=== PATIENT | male | born 1965 | race African-American/Black ===

== ENCOUNTER 2018-09-12 13:16 | Emergency (ER) | payer BC ==
[2018-09-12 13:41] VITALS: BP 150/78; PULSE 108; RESP 18; TEMP 98.4
[2018-09-12] MEDS ORDERED: SODIUM CHLORIDE 0.9% 1,000 ML IV STA (13:46)
--- NOTE | 2018-09-12 14:26 | ED ---
General Adult HPI - General Chief complaint: Urogenital Stated complaint: Blood in urine Time Seen by Provider: 09/12/18 13:46 Source: patient, RN notes reviewed Mode of arrival: ambulatory Limitations: no limitations - History of Present Illness Initial comments: This a 52-year-old male presents emergency Department with chief complaint of hematuria. Patient states he's noticed that he's had urinary frequency with mild dysuria and noted hematuria over the last couple days. Patient denies any fevers or chills. Patient has no history kidney stones. Patient states that he started taking some Azo [id number] because of his symptoms had no relief. Patient does have mild right flank pain no abdominal discomfort including nausea vomiting diarrhea constipation. Patient reports no fevers or chills. - Related Data Previous Rx's Medication Instructions Recorded Sulfamethox-Tmp 800-160Mg [Bactrim 1 each PO Q12HR #14 tab 09/12/18 Ds] Allergies Allergy/AdvReac Type Severity Reaction Status Date / Time Penicillins Allergy Rash/Hives Verified 09/12/18 13:42 Review of Systems ROS Statement: Those systems with pertinent positive or pertinent negative responses have been documented in the HPI. ROS Other: All systems not noted in ROS Statement are negative. Past Medical History Additional Past Medical History / Comment(s): obesity History of Any Multi-Drug Resistant Organisms: None Reported Additional Past Surgical History / Comment(s): lap band, varicose veins Past Psychological History: No Psychological Hx Reported Smoking Status: Former smoker Past Alcohol Use History: Occasional Past Drug Use History: None Reported General Exam Limitations: no limitations General appearance: alert, in no apparent distress Head exam: Present: atraumatic, normocephalic, normal inspection Eye exam: Present: normal appearance, PERRL, EOMI. Absent: scleral icterus, conjunctival injection, periorbital swelling ENT exam: Present: normal exam, normal oropharynx, mucous membranes moist Neck exam: Present: normal inspection, full ROM. Absent: tenderness, meningismus, lymphadenopathy Respiratory exam: Present: normal lung sounds bilaterally. Absent: respiratory distress, wheezes, rales, rhonchi, stridor Cardiovascular Exam: Present: regular rate, normal rhythm, normal heart sounds. Absent: systolic murmur, diastolic murmur, rubs, gallop, clicks GI/Abdominal exam: Present: soft, normal bowel sounds. Absent: distended, tenderness, guarding, rebound, rigid Back exam: Absent: CVA tenderness (R), CVA tenderness (L) Neurological exam: Present: alert, oriented X3, CN II-XII intact Skin exam: Present: warm, dry, intact, normal color. Absent: rash Course Vital Signs 09/12/18 13:39 Temperature 98.4 F Pulse Rate 108 H Respiratory 18 Rate Blood Pressure 150/78 O2 Sat by Pulse 99 Oximetry Medical Decision Making - Medical Decision Making 52-year-old male present emergency from [facility]. Patient had urinalysis, labs, CT. There is no evidence of a stone or mass. There is concern for possible underlying urinary tract infection. Patient was started on anti biotics. He'll follow-up with urology for further evaluation and return for worsening symptoms. - Lab Data Result diagrams: 09/12/18 14:30 09/12/18 14:30 Lab Results 09/12/18 09/12/18 09/12/18 Range/Units 14:30 14:30 14:30 WBC 9.7 (3.8-10.6) k/uL RBC 5.68 (4.30-5.90) m/uL Hgb 14.7 (13.0-17.5) gm/dL Hct 45.3 (39.0-53.0) % MCV 79.8 L (80.0-100.0) fL MCH 25.8 (25.0-35.0) pg MCHC 32.3 (31.0-37.0) g/dL RDW 14.0 (11.5-15.5) % Plt Count 303 (150-450) k/uL Neutrophils % 63 % Lymphocytes % 18 % Monocytes % 12 % Eosinophils % 2 % Basophils % 1 % Neutrophils # 6.1 (1.3-7.7) k/uL Lymphocytes # 1.8 (1.0-4.8) k/uL Monocytes # 1.2 H (0-1.0) k/uL Eosinophils # 0.2 (0-0.7) k/uL Basophils # 0.1 (0-0.2) k/uL Sodium 140 (137-145) mmol/L Potassium 3.8 (3.5-5.1) mmol/L Chloride 101 (98-107) mmol/L Carbon Dioxide 25 (22-30) mmol/L Anion Gap 14 mmol/L BUN 14 (9-20) mg/dL Creatinine 0.88 (0.66-1.25) mg/dL Est GFR (CKD-EPI)AfAm >90 (>60 ml/min/1.73 sqM) Est GFR (CKD-EPI)NonAf >90 (>60 ml/min/1.73 sqM) Glucose 101 H (74-99) mg/dL Calcium 9.2 (8.4-10.2) mg/dL Total Bilirubin 0.9 (0.2-1.3) mg/dL AST 21 (17-59) U/L ALT 23 (21-72) U/L Alkaline Phosphatase 68 (38-126) U/L Total Protein 7.6 (6.3-8.2) g/dL Albumin 4.1 (3.5-5.0) g/dL Urine Color Dark Brown Urine Appearance Turbid (Clear) Urine pH 6.0 (5.0-8.0) Ur Specific [place] 1.021 (1.001-1.035) Urine Protein 2+ H (Negative) Urine Glucose (UA) Negative (Negative) Urine Ketones Trace H (Negative) Urine Blood Moderate H (Negative) Urine Nitrite Negative (Negative) Urine Bilirubin 1+ H (Negative) Urine Urobilinogen 4.0 (<2.0) mg/dL Ur Leukocyte Esterase Large H (Negative) Urine RBC 30 H (0-5) /hpf Urine WBC Clumps Many H (None) /hpf Urine Mucus Many H (None) /hpf Disposition Clinical Impression: Hematuria, UTI (urinary tract infection) Disposition: HOME SELF-CARE Condition: Stable Instructions (If sedation given, give patient instructions): Urinary Tract Infection in Men (ED) Additional Instructions: Please return to the Emergency Department if symptoms worsen or any other concerns. Prescriptions: Sulfamethox-Tmp 800-160Mg [Bactrim Ds] 1 each PO Q12HR #14 tab Is patient prescribed a controlled substance at d/c from ED?: No Referrals: aSrah Marte MD [Primary Care Provider] - 1-2 days Haroon Duarte MD [STAFF PHYSICIAN] - 1-2 days Time of Disposition: 15:28
[2018-09-12 14:37] LABS: Basophils # (A) 0.1 k/uL (0-0.2); Basophils % (A) 1 %; Eosinophils # (A) 0.2 k/uL (0-0.7); Eosinophils % (A) 2 %; HCT 45.3 % (39.0-53.0); HGB 14.7 gm/dL (13.0-17.5); Lymphocytes # (A) 1.8 k/uL (1.0-4.8); Lymphocytes % (A) 18 %; MCH 25.8 pg (25.0-35.0); MCHC 32.3 g/dL (31.0-37.0); MCV 79.8 fL (80.0-100.0); Mean Platelet Volume 6.6; Monocytes # (A) 1.2 k/uL (0-1.0); Monocytes % (A) 12 %; Neutrophils # (A) 6.1 k/uL (1.3-7.7); Neutrophils % (A) 63 %; Platelet Count 303 k/uL (150-450); RBC 5.68 m/uL (4.30-5.90); WBC 9.7 k/uL (3.8-10.6)
[2018-09-12 14:41] LABS: Appearance,Urine Turbid (Clear); Bilirubin,Urine 1+ (Negative); Blood,Urine Moderate (Negative); Color,Urine Dark Brown; Glucose,Urine (UA) Negative (Negative); Ketones,Urine Trace (Negative); Leukocyte Esterase,Urine Large (Negative); Mucus,Urine Many /hpf; Nitrite,Urine Negative (Negative); Protein,Urine 2+ (Negative); RBC,Urine 30 /hpf (0-5); Specific Gravity,Urine 1.021 (1.001-1.035)
[2018-09-12 14:46] LABS: ALT 23 U/L (21-72); AST 21 U/L (17-59); African American GFR (CKD) >90 (>60 ml/min/1.73 sqM); Albumin 4.1 g/dL (3.5-5.0); Alkaline Phosphatase 68 U/L (38-126); Anion Gap 14 mmol/L; Blood Urea Nitrogen 14 mg/dL (9-20); Calcium 9.2 mg/dL (8.4-10.2); Carbon Dioxide 25 mmol/L (22-30); Chloride 101 mmol/L (98-107); Glucose 101 mg/dL (74-99); Potassium 3.8 mmol/L (3.5-5.1); Sodium 140 mmol/L (137-145); Total Bilirubin 0.9 mg/dL (0.2-1.3); Total Protein 7.6 g/dL (6.3-8.2)
--- NOTE | 2018-09-12 14:57 | CT ---
EXAMINATION TYPE: CT abdomen pelvis wo con DATE OF EXAM: 09/12/2018 COMPARISON: HISTORY: Hematuria. CT DLP: 2332 mGycm Examination of the solid and hollow viscera is limited given the lack of contrast. FINDINGS: LUNG BASES: No evidence for nodule. No evidence for infiltrate. LIVER/GB: The gallbladder is unremarkable. No space-occupying hepatic lesion. PANCREAS: No pancreatic mass identified. No inflammatory process seen. SPLEEN: No evidence for splenomegaly. No intrasplenic lesions seen. ADRENALS: No adrenal nodules identified. No evidence for thickening. KIDNEYS: No evidence for renal mass. No nephrolithiasis. No hydronephrosis. BOWEL: Appendix has a normal appearance. No evidence of bowel obstruction. No inflammatory process. Lymph nodes: No evidence for adenopathy greater than 1 cm. Abdominal aorta: Atheromatous changes seen. No evidence for aneurysm. Genital organs: No significant abnormality. Other: No significant abnormality. IMPRESSION: 1. No significant abnormality to account for the patient's symptoms.
== END 2018-09-12 16:05 | disposition home or self-care (01) ==
LOC: EC 13:16
DX: N39.0 Urinary tract infection, site not specified (principal); E66.9 Obesity, unspecified; Z68.44 Body mass index [BMI] 60.0-69.9, adult; Z87.891 Personal history of nicotine dependence; Z98.84 Bariatric surgery status; Z88.0 Allergy status to penicillin
CPT/HCPCS: 36415; 74176; 80053; 81001; 85025; 87077; 87086; 87186; 96360; 99284

== ENCOUNTER 2020-12-26 13:37 | Inpatient (IN) | payer BC ==
[2020-12-26] MEDS ORDERED: FAMOTIDINE 20 MG/2 ML VIAL IV STA (14:06)
[2020-12-26] MEDS ORDERED: diphenhydrAMINE 50 MG/ML 1 ML VIAL IVP STA (14:06)
[2020-12-26] MEDS ORDERED: methylPREDNISolone SOD SUCCI 125 MG/2 ML VIAL IV STA (14:06)
[2020-12-26] MEDS ORDERED: TRANEXAMIC ACID 1,000 MG/10 ML VIAL IV ONE (14:14)
[2020-12-26] MEDS ORDERED: TRANEXAMIC ACID 1,000 MG in SODIUM CHLORIDE 0.9% 100 ML IVPB ONE (14:30)
--- NOTE | 2020-12-26 14:34 | ED ---
Allergic Reaction HPI - General Chief complaint: Allergic Reaction Stated complaint: Allergic Reaction Time Seen by Provider: 12/26/20 13:45 Source: patient Mode of arrival: ambulatory Limitations: no limitations - History of Present Illness Initial Comments: 55-year-old male past medical history of hypertension, diabetes, high blood pressure who presents emergency room with reported tongue swelling. States that he woke up about an hour ago noted that he had fullness to the right side of his tongue. He was unsure if it was due to some trail mix that he ate earlier today before he took his nap. Admits allergy to penicillin but has not been on any new medications. Patient does take lisinopril and has been on it for approximately one year. No history of similar in the past. Denies the sensation that his airway is closing off. No chest pain or shortness of breath. He went to the pharmacy and bought some Benadryl however did not take any as the pharmacist recommended that he come into the emergency department instead. No lip swelling. No fevers or chills. No other alleviating, precipitating or modifying factors - Related Data Home Medications Medication Instructions Recorded Confirmed Diclofenac Sodium [Voltaren] 75 mg PO BID 12/26/20 12/26/20 Furosemide [Lasix] 20 mg PO DAILY 12/26/20 12/26/20 amLODIPine [Norvasc] 10 mg PO DAILY 12/26/20 12/26/20 lisinopriL 20 mg PO DAILY 12/26/20 12/26/20 metFORMIN HCL [Glucophage] 850 mg PO W/BRKFST 12/26/20 12/26/20 Allergies Allergy/AdvReac Type Severity Reaction Status Date / Time Penicillins Allergy Rash/Hives Verified 12/26/20 16:48 Review of Systems ROS Statement: Those systems with pertinent positive or pertinent negative responses have been documented in the HPI. ROS Other: All systems not noted in ROS Statement are negative. Past Medical History Past Medical History: Diabetes Mellitus, Hypertension Additional Past Medical History / Comment(s): obesity History of Any Multi-Drug Resistant Organisms: None Reported Additional Past Surgical History / Comment(s): lap band, varicose veins Past Psychological History: No Psychological Hx Reported Smoking Status: Never smoker Past Alcohol Use History: Occasional Past Drug Use History: None Reported - Past Family History Mother Family Medical History: Congestive Heart Failure (CHF), CVA/TIA, Hypertension Additional Family Medical History / Comment(s): "Heart Problems" General Exam Limitations: no limitations Course Vital Signs 12/26/20 12/26/20 12/26/20 13:45 14:30 15:32 Temperature 97.4 F L Pulse Rate 112 H 85 Respiratory 20 19 21 Rate Blood Pressure 155/74 Blood Pressure [Left Arm] O2 Sat by Pulse 100 Oximetry 12/26/20 12/26/20 12/26/20 15:40 15:50 16:00 Temperature Pulse Rate 98 103 H 101 H Respiratory 20 12 17 Rate Blood Pressure 149/106 205/121 174/79 Blood Pressure [Left Arm] O2 Sat by Pulse 100 100 Oximetry 12/26/20 12/26/20 12/26/20 16:10 16:18 16:30 Temperature Pulse Rate 99 96 96 Respiratory 18 18 29 H Rate Blood Pressure 123/68 113/57 121/56 Blood Pressure [Left Arm] O2 Sat by Pulse 100 100 97 Oximetry 12/26/20 12/26/20 12/26/20 16:31 16:34 17:00 Temperature 98.1 F Pulse Rate 97 89 Respiratory 15 14 11 L Rate Blood Pressure 121/56 117/65 Blood Pressure 110/61 [Left Arm] O2 Sat by Pulse 97 97 96 Oximetry 12/26/20 17:12 Temperature Pulse Rate 88 Respiratory 15 Rate Blood Pressure 107/53 Blood Pressure [Left Arm] O2 Sat by Pulse 95 Oximetry - Reevaluation(s) Reevaluation #1: 12/26/20 15:51 Re-evaluation demonstrates worsening swelling. The swelling now involves the floor of the mouth. Patient has significant voice changes. Cannot tolerated his secretions. Anesthesia is called for assistance with intubation. Medical Decision Making - Medical Decision Making Upon arrival patient is placed into trauma bay 3. A thorough history and physical exam was performed. Upon arrival patient does have some swelling to the right side of his tongue. IV is established. Patient was given 125 of Solu-Medrol, 20 mg of Pepcid, 50 mg of Benadryl and 1 g of TXA over 10 minutes. He is reevaluated and does have worsening swelling to the right side of his tongue which no involves the floor of his mouth. He is moved into trauma 1. He is given a dose of epinephrine. I did call and speak with anesthesiology who presents to the emergency department. After epinephrine is administered the patient does have difficulty tolerating his secretions and begins vomiting. Because of this decision is made to intubate the patient. Anesthesiology does perform the procedure. Patient is placed on the vent. Admitted to Dr. bermudez. Dr. Park does present to the emergency room and evaluate the patient himself. He is then taken to the ICU in stable condition - Lab Data Result diagrams: 12/26/20 14:49 12/26/20 14:49 Lab Results 12/26/20 12/26/20 Range/Units 14:49 14:49 WBC 8.7 (3.8-10.6) k/uL RBC 5.08 (4.30-5.90) m/uL Hgb 13.8 (13.0-17.5) gm/dL Hct 44.3 (39.0-53.0) % MCV 87.1 (80.0-100.0) fL MCH 27.1 (25.0-35.0) pg MCHC 31.1 (31.0-37.0) g/dL RDW 13.6 (11.5-15.5) % Plt Count 270 (150-450) k/uL MPV 7.7 Neutrophils % 64 % Lymphocytes % 24 % Monocytes % 6 % Eosinophils % 4 % Basophils % 1 % Neutrophils # 5.6 (1.3-7.7) k/uL Lymphocytes # 2.1 (1.0-4.8) k/uL Monocytes # 0.5 (0-1.0) k/uL Eosinophils # 0.3 (0-0.7) k/uL Basophils # 0.1 (0-0.2) k/uL Sodium 136 L (137-145) mmol/L Potassium 4.6 (3.5-5.1) mmol/L Chloride 104 (98-107) mmol/L Carbon Dioxide 23 (22-30) mmol/L Anion Gap 9 mmol/L BUN 13 (9-20) mg/dL Creatinine 0.58 L (0.66-1.25) mg/dL Est GFR (CKD-EPI)AfAm >90 (>60 ml/min/1.73 sqM) Est GFR (CKD-EPI)NonAf >90 (>60 ml/min/1.73 sqM) Glucose 90 (74-99) mg/dL Calcium 8.8 (8.4-10.2) mg/dL Total Bilirubin 0.4 (0.2-1.3) mg/dL AST 20 (17-59) U/L ALT 16 (4-49) U/L Alkaline Phosphatase 59 (38-126) U/L Total Protein 6.7 (6.3-8.2) g/dL Albumin 3.5 (3.5-5.0) g/dL Disposition Clinical Impression: Ventilator dependence, Angioedema, LORENZO inhibitor-aggravated angioedema Disposition: ADMITTED IP TO THIS [facility] Condition: Serious Is patient prescribed a controlled substance at d/c from ED?: No Decision to Admit Reason: Admit from EC Decision Date: 12/26/20 Decision Time: 15:57
[2020-12-26 15:03] LABS: ALT 16 U/L (4-49); AST 20 U/L (17-59); African American GFR (CKD) >90 (>60 ml/min/1.73 sqM); Albumin 3.5 g/dL (3.5-5.0); Alkaline Phosphatase 59 U/L (38-126); Anion Gap 9 mmol/L; Blood Urea Nitrogen 13 mg/dL (9-20); Calcium 8.8 mg/dL (8.4-10.2); Carbon Dioxide 23 mmol/L (22-30); Chloride 104 mmol/L (98-107); Glucose 90 mg/dL (74-99); Non-African American GFR(CKD) >90 (>60 ml/min/1.73 sqM); Potassium 4.6 mmol/L (3.5-5.1); Sodium 136 mmol/L (137-145); Total Bilirubin 0.4 mg/dL (0.2-1.3); Total Protein 6.7 g/dL (6.3-8.2)
[2020-12-26 15:06] LABS: Basophils # (A) 0.1 k/uL (0-0.2); Basophils % (A) 1 %; Eosinophils # (A) 0.3 k/uL (0-0.7); Eosinophils % (A) 4 %; HCT 44.3 % (39.0-53.0); HGB 13.8 gm/dL (13.0-17.5); Lymphocytes # (A) 2.1 k/uL (1.0-4.8); Lymphocytes % (A) 24 %; MCH 27.1 pg (25.0-35.0); MCHC 31.1 g/dL (31.0-37.0); MCV 87.1 fL (80.0-100.0); Mean Platelet Volume 7.7; Monocytes # (A) 0.5 k/uL (0-1.0); Monocytes % (A) 6 %; Neutrophils # (A) 5.6 k/uL (1.3-7.7); Neutrophils % (A) 64 %; Platelet Count 270 k/uL (150-450); RBC 5.08 m/uL (4.30-5.90); RDW 13.6 % (11.5-15.5); WBC 8.7 k/uL (3.8-10.6)
[2020-12-26] MEDS ORDERED: ONDANSETRON 4 MG/2 ML VIAL IVP STA (15:34)
[2020-12-26] MEDS: PROPOFOL 10 MG/ML 20 ML VIAL IV ONE ×2 (15:37→15:41)
[2020-12-26] MEDS ORDERED: SUCCINYLCHOLINE CHLORIDE VIAL 200 MG/10 ML VIAL IV STA (15:40)
[2020-12-26] MEDS ORDERED: NALOXONE 0.4 MG/ML 1 ML VIAL IV PRN (15:57)
[2020-12-26] MEDS ORDERED: MIDAZOLAM 1 MG/ML 5 ML VIAL IV STA (16:03)
--- NOTE | 2020-12-26 16:18 | XR ---
EXAMINATION TYPE: XR chest 1V portable DATE OF EXAM: 12/26/2020 HISTORY: Shortness of breath. COMPARISON: None. TECHNIQUE: Single view of the chest is submitted. FINDINGS: Endotracheal tube is well-positioned and is approximately 3.1 cm from the otilio. The NG tube coils w ithin the mid esophagus and back towards the oral cavity. The heart is enlarged. There is pulmonary venous congestion and linear atelectasis right midlung zone . Hilar and mediastinal structures are within normal limits. Degenerative changes are seen of the dorsal spine. IMPRESSION: 1. Appropriate ET tube placement. NG tube should be repositioned.
[2020-12-26] MEDS ORDERED: HYDROmorphone 0.5 MG/0.5 ML SYRINGE IVP PRN (16:20)
--- NOTE | 2020-12-26 16:22 | P.CNPUL ---
History of Present Illness Consult date: 12/26/20 Chief complaint: angioedema History of present illness: 55-year-old morbidly obese male patient, currently intubated because of a massive angioedema causing significant amount of swelling in his tongue and airway compromise. The patient was taken ABHIJEET inhibitor Zestril for blood pressure. He came into the emergency department because of some tongue swelling and ultimately got to a point where he was unable to swallow and he was drooling and he was having respiratory difficulties and anesthesia intubated the patient and placed on a mechanical ventilator. At this point in time, the lips and tongues are still swollen. The patient was given epinephrine without any response prior to intubation. He was also given Solu-Medrol 125 mg IV 1, Benadryl 50 mg IV 1 and he was also given TXA and the bleeding. No Hypotension. At This Point in Time, He Is Intubated on a Mechanical Ventilator Assist Control Mode at the Rate of 14 Tidal Volume of 450 FiO2 100% with a PEEP of 5. Chest X-Ray Post Intubation , showed no acute abnormalities. ET tube is in a good location. There are some atelectatic changes in the right upper lobe and there is fluid in the right lung fissure. There is cardiomegaly in the lung volumes are small. ET tube is seen approximately 1 cm above the otilio. Currently is on probable running at 80 mg/kg per minute. He is also on IV fluids of 0.9 mL an hour. He is diabetic and his blood sugar is running at nor mal range. Normal renal function. Normal electrolytes. Normal white count. COVID-19 testing has not been completed yet. Review of Systems ROS unobtainable: due to endotracheal tube Past Medical History Past Medical History: Diabetes Mellitus, Hypertension Additional Past Medical History / Comment(s): obesity History of Any Multi-Drug Resistant Organisms: None Reported Additional Past Surgical History / Comment(s): lap band, varicose veins Past Psychological History: No Psychological Hx Reported Smoking Status: Never smoker Past Alcohol Use History: Occasional Past Drug Use History: None Reported Medications and Allergies Home Medications Medication Instructions Recorded Confirmed Type Sulfamethox-Tmp 800-160Mg [Bactrim 1 each PO Q12HR #14 tab 09/12/18 Rx Ds] Allergies Allergy/AdvReac Type Severity Reaction Status Date / Time Penicillins Allergy Rash/Hives Verified 12/26/20 13:48 Physical Exam Vitals: Vital Signs Temp Pulse Resp BP Pulse Ox 12/26/20 13:45 97.4 F L 112 H 20 155/74 100 Intake and Output 12/26/20 12/26/20 12/26/20 06:59 14:59 22:59 Intake Total 1.506 Balance 1.506 Intake: Intake, IV Titration 1.506 Amount propofoL 1,000 mg In 1.506 Empty Bag 1 bag @ Titrate IV .Q0M [facility] Rx#: [id number] Other: Weight 188.241 kg patient is calm and comfortable likely distress, sedated, is morbidly obese with a BMI of 65 Orogastric and orotracheal tube are both in place and the patient currently intubated on a mechanical ventilator Head exam was generally normal. There was no scleral icterus or corneal arcus. Mucous membranes were moist. Neck is short and supple and symmetric and the patient has an enlarged tongue with swelling in the lip is also swollen especially in the lower lip. Orogastric and orotracheal tube are both in place. Lungs were clear to auscultation and percussion, and with normal diaphragmatic excursion. No wheezes or rales were noted. Cardiac exam revealed the PMI to be normally situated and sized. The rhythm was regular and no extrasystoles were noted during several minutes of auscultation. The first and second heart sounds were normal and physiologic splitting of the second heart sound was noted. There were no murmurs, rubs, clicks, or gallops. Abdominal exam revealed normal bowel sounds. The abdomen was soft, non-tender, and without masses, organomegaly, or appreciable enlargement of the abdominal aorta. Examination of the extremities revealed easily palpable radial, femoral and pedal pulses. There was no cyanosis, clubbing or edema. Examination of the skin revealed no evidence of significant rashes, suspicious appearing nevi or other concerning lesions. Neurologic the patient is sedated and the patient is calm and comfortable. Results - Laboratory Findings CBC and BMP: 12/26/20 14:49 12/26/20 14:49 Abnormal lab findings: Abnormal Labs 12/26/20 14:49 Sodium 136 L Creatinine 0.58 L - Diagnostic Findings Chest x-ray: image reviewed Assessment and Plan Plan: 1 acute angioedema with upper airway compromise requiring intubation mechanical ventilation. This is an Abhijeet induced angioedema as the patient has been taken ABHIJEET inhibitor for almost a year. No other obvious cause for his angioedema. 2 acute hypoxic respiratory failure secondary to above. The patient had significant tongue swelling in addition to left swelling and difficulty in swallowing and breathing and he is morbidly obese with obvious features of obstructive sleep apnea with some baseline airway compromise. As such, the patient had to be intubated and placed on a mechanical ventilator. 3 morbid obesity with a BMI of 65 4 diabetes mellitus 5 hypertension 6 previous history of lap band Plan Transfer the patient intensive care unit Drop the FiO2 down to 50% Obtain a blood gas Post intubation chest x-ray was noted Continue propofol Use Dilaudid 0.5 mg every 3-6 hours on history basis and avoid benzodiazepines IV Decadron 60 mg every 6 hours and IV Pepcid 20 mg every 12 Lovenox 40 mg subcu for DVT prophylaxis Keep the patient nothing by mouth for now. No need for Benadryl responding time High likelihood for obstructive sleep apnea and this is to be checked at a later stage Keep the patient nothing by mouth for now Discontinue Abhijeet inhibitors Sliding scale insulin coverage Check COVID-19 status We'll continue to follow. Condition is critical. Case was discussed with his mother the bedside. Time with Patient: Greater than 30
[2020-12-26] MEDS ORDERED: INSULIN ASPART (NovoLOG) 100 UNIT/ML VIAL SQ SCH (16:30)
[2020-12-26] MEDS: DEXAMETHASONE SOD PHOSPHATE 10 MG/ML 1 ML VIAL IV SCH ×2 (17:03→22:09)
[2020-12-26 17:05] LABS: ABG Base Excess 1.7 mmol/L; ABG HCO3 28 mmol/L (21-25); ABG Oxygen Saturation 94.3 % (94-97); ABG PCO2 52 mmHg (35-45); ABG PH 7.33 (7.35-7.45); ABG PO2 75 mmHg (83-108); ABG TCO2 29 mmol/L (19-24); Allen Test Performed? Yes
--- NOTE | 2020-12-26 19:20 | P.HPIM ---
History of Present Illness H&P Date: 12/26/20 Chief Complaint: Tongue swelling This is a 55-year-old patient, was chronic stable medical conditions include hypertension, diabetes, presents to the ER with his right side of the tongue swelling. He had woken up an hour prior to coming here. Eating some cranial mix before he had taken a nap. He has been on lisinopril for about a year. Denied any shortness of breath otherwise. When the swelling progressed. He had gone to the pharmacy to get some Benadryl but he was told to come in here instead. He started choking in the ER and patient had to be intubated. Jasvir colmenares the ICU. Mother at the bedside. Patient on the ventilator with setting of 50/5 and propofol drip. Patient did receive IV Pepcid, IV Benadryl, IV Solu- Medrol. Review of systems: Patient intubated Past medical history to include: Diabetes, hypertension, LAP-BAND Social history: Lives with his mother for last 6 months. 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 Does not smoke, possible some alcohol. Prior to that not known. with 2 children. Family history: Reviewed, noncontributory to presentation Physical examination: VITAL SIGNS: Afebrile, 88, 15, 107/53, 95% on the ventilator GENERAL: BMI 65, laying in bed intubated. EYES: Pupils equal. Conjunctiva normal. HEENT: External appearance of nose and ears normal, oral cavity endotracheal tube. NECK: JVD unable to assess; masses not palpable. HEART: First and second heart sounds are normal; some edema. LUNGS: Respiratory rate normal; decreased breath sound. ABDOMEN: Soft, nontender, liver spleen not palpable, no masses palpable Rudd catheter. PSYCH: Sedatedl. NEUROLOGICAL: [Cranial nerves grossly intact; no facial asymmetry, plantars acute vocal. LYMPHATICS: No lymph nodes palpable in the axilla and neck INVESTIGATIONS, reviewed in the clinical context: WBC 8.7 hemoglobin 13.8 platelets 270 sodium 136 potassium 4.6 BUN 13 creatinine 0.58 Coronavirus [PCR]: Not detected Telemetry strip personally reviewed by me: Sinus rhythm Chest x-ray film personally reviewed by me-ET tube. Some venous congestion. A telectasis. Assessment and plan: -This patient had a bag of cranial mix and then went to sleep. Presented with swelling of the right swelling of tongue that progressed to acute respiratory failure with patient choking and had to be intubated to protect the airways. It is unclear as to the reason for his ALLERGIC reaction. Severe Steroids, Pepcid, Benadryl -Morbid obesity BMI 65 -Essential hypertension Follow blood pressure closely -Diabetes mellitus type 2, on oral hypoglycemic Expect Accu-Cheks to go because patient was steroids. Follow Accu-Cheks closely. Patient in the ICU. Intubated. Propofol drip. Risk Compliance Manager consult. Follow Accu-Cheks. DVT prophylaxis. Steroids. Pepcid. Benadryl. Given the complexity and severity of patient's condition expect the patient to be in the hospital at least for 2 overnights Past Medical History Past Medical History: Diabetes Mellitus, Hypertension Additional Past Medical History / Comment(s): obesity History of Any Multi-Drug Resistant Organisms: None Reported Additional Past Surgical History / Comment(s): lap band, varicose veins Past Psychological History: No Psychological Hx Reported Smoking Status: Never smoker Past Alcohol Use History: Occasional Past Drug Use History: None Reported Medications and Allergies Home Medications Medication Instructions Recorded Confirmed Type Diclofenac Sodium [Voltaren] 75 mg PO BID 12/26/20 12/26/20 History Furosemide [Lasix] 20 mg PO DAILY 12/26/20 12/26/20 History amLODIPine [Norvasc] 10 mg PO DAILY 12/26/20 12/26/20 History lisinopriL 20 mg PO DAILY 12/26/20 12/26/20 History metFORMIN HCL [Glucophage] 850 mg PO W/BRKFST 12/26/20 12/26/20 History Allergies Allergy/AdvReac Type Severity Reaction Status Date / Time Penicillins Allergy Rash/Hives Verified 12/26/20 16:48 Physical Exam Vitals: Vital Signs Temp Pulse Resp BP Pulse Ox 12/26/20 17:12 88 15 107/53 95 12/26/20 16:31 97 15 121/56 97 12/26/20 16:18 96 18 113/57 100 12/26/20 16:10 99 18 123/68 100 12/26/20 16:00 101 H 17 174/79 12/26/20 15:50 103 H 12 205/121 100 12/26/20 15:40 98 20 149/106 100 12/26/20 15:32 85 21 12/26/20 14:30 19 12/26/20 13:45 97.4 F L 112 H 20 155/74 100 Intake and Output 12/26/20 12/26/20 12/26/20 06:59 14:59 22:59 Intake Total 12.048 Balance 12.048 Intake: Intake, IV Titration 12.048 Amount propofoL 1,000 mg In 12.048 Empty Bag 1 bag @ Titrate IV .Q0M [facility] Rx#: [id number] Other: Weight 188.241 kg Results CBC & Chem 7: 12/26/20 14:49 12/26/20 14:49 Labs: Abnormal Lab Results - Last 24 Hours (Table) 12/26/20 12/26/20 Range/Units 14:49 17:03 ABG pH 7.33 L (7.35-7.45) ABG pCO2 52 H (35-45) mmHg ABG pO2 75 L (83-108) mmHg ABG HCO3 28 H (21-25) mmol/L ABG Total CO2 29 H (19-24) mmol/L Sodium 136 L (137-145) mmol/L Creatinine 0.58 L (0.66-1.25) mg/dL
[2020-12-26] MEDS: CHLORHEXIDINE GLUCONATE 15 ML CUP MUCOUS MEM SCH (20:15)
[2020-12-26] MEDS: diphenhydrAMINE 50 MG/ML 1 ML VIAL IVP SCH ×2 (20:15→23:58)
[2020-12-26] MEDS: FAMOTIDINE 20 MG/2 ML VIAL IV SCH (20:16)
[2020-12-26] MEDS: SODIUM CHLORIDE 0.9% 1,000 ML IV SCH (22:10)
[2020-12-26 23:52] LABS: Glucose,Whole Blood 128 mg/dL (75-99)
[2020-12-26] MEDS: INSULIN ASPART (NovoLOG) 100 UNIT/ML VIAL SQ SCH (23:53)
[2020-12-27 05:07] LABS: Basophils % (A) 0 %; Eosinophils # (A) 0.1 k/uL (0-0.7); Eosinophils % (A) 1 %; HCT 42.9 % (39.0-53.0); HGB 13.5 gm/dL (13.0-17.5); Lymphocytes % (A) 10 %; MCH 27.7 pg (25.0-35.0); MCHC 31.5 g/dL (31.0-37.0); Mean Platelet Volume 7.8; Monocytes # (A) 0.1 k/uL (0-1.0); Monocytes % (A) 1 %; Neutrophils # (A) 8.6 k/uL (1.3-7.7); Neutrophils % (A) 88 %; Platelet Count 280 k/uL (150-450); RBC 4.88 m/uL (4.30-5.90); RDW 13.6 % (11.5-15.5); WBC 9.9 k/uL (3.8-10.6)
[2020-12-27 05:13] LABS: ABG Base Excess 2.4 mmol/L; ABG HCO3 27 mmol/L (21-25); ABG Oxygen Saturation 98.5 % (94-97); ABG PCO2 45 mmHg (35-45); ABG PO2 101 mmHg (83-108); ABG TCO2 29 mmol/L (19-24); Allen Test Performed? Yes
[2020-12-27 05:28] LABS: ALT 17 U/L (4-49); AST 21 U/L (17-59); African American GFR (CKD) >90 (>60 ml/min/1.73 sqM); Albumin 3.5 g/dL (3.5-5.0); Alkaline Phosphatase 61 U/L (38-126); Anion Gap 7 mmol/L; Blood Urea Nitrogen 10 mg/dL (9-20); Carbon Dioxide 22 mmol/L (22-30); Chloride 106 mmol/L (98-107); Glucose 138 mg/dL (74-99); Non-African American GFR(CKD) >90 (>60 ml/min/1.73 sqM); Potassium 4.4 mmol/L (3.5-5.1); Sodium 135 mmol/L (137-145); Total Bilirubin 0.3 mg/dL (0.2-1.3); Total Protein 6.8 g/dL (6.3-8.2)
[2020-12-27] MEDS: DEXAMETHASONE SOD PHOSPHATE 10 MG/ML 1 ML VIAL IV SCH ×4 (05:35→21:50)
[2020-12-27] MEDS: diphenhydrAMINE 50 MG/ML 1 ML VIAL IVP SCH ×4 (05:36→23:21)
[2020-12-27 06:15] LABS: Glucose,Whole Blood 121 mg/dL (75-99)
[2020-12-27] MEDS: INSULIN ASPART (NovoLOG) 100 UNIT/ML VIAL SQ SCH ×4 (06:24→23:19)
--- NOTE | 2020-12-27 07:57 | XR ---
EXAMINATION TYPE: XR chest 1V portable DATE OF EXAM: 12/27/2020 Comparison: 12/26/2020 Clinical History: 55-year-old male shortness of breath Findings: ET tube tip just above the level of the medial clavicular heads. Suspect kyphotic positioning. Heart appears enlarged. Interstitial opacities persist though there is been improvement in aeration in the upper lobes. Elevated hemidiaphragms limit assessment for effusions. NG tube removed in the interval. Impression: 1. Limited, kyphotic exam. Similar cardiomegaly and continued interstitial changes, correlate for per ivascular congestion. 2. The patchy opacities in the upper lobes have improved.
--- NOTE | 2020-12-27 08:07 | P.PN ---
Subjective Progress Note Date: 12/27/20 55-year-old morbidly obese male patient, currently intubated because of a massive angioedema causing significant amount of swelling in his tongue and airway compromise. The patient was taken ABHIJEET inhibitor Zestril for blood pressure. He came into the emergency department because of some tongue swelling and ultimately got to a point where he was unable to swallow and he was drooling and he was having respiratory difficulties and anesthesia intubated the patient and placed on a mechanical ventilator. At this point in time, the lips and tongues are still swollen. The patient was given epinephrine without any response prior to intubation. He was also given Solu-Medrol 125 mg IV 1, Benadryl 50 mg IV 1 and he was also given TXA and the bleeding. No Hypotension. At This Point in Time, He Is Intubated on a Mechanical Ventilator Assist Control Mode at the Rate of 14 Tidal Volume of 450 FiO2 100% with a PEEP of 5. Chest X-Ray Post Intubation , showed no acute abnormalities. ET tube is in a good location. There are some atelectatic changes in the right upper lobe and there is fluid in the right lung fissure. There is cardiomegaly in the lung volumes are small. ET tube is seen approximately 1 cm above the otilio. Currently is on probable running at 80 mg/kg per minute. He is also on IV fluids of 0.9 mL an hour. He is diabetic and his blood sugar is running at normal range. Normal renal function. Normal electrolytes. Normal white count. COVID-19 testing has not been completed yet. On today's evaluation of the 2020, the patient is being seen for a follow- up. He is a large or obese gentleman with a body mass index of 67.9 with developed angioedema. He had significant airway compromise knowing that he may have an underlying obstructive sleep apnea in addition. His tongue is still swollen is protruded on today's evaluation. He remains on Decadron. He remains on a mechanical ventilator. His assist-control mode with a tidal volume of 450 and FiO2 has been drop down to 50% with a PEEP of 5 and a respiratory rate of 14. His morning blood gases showed a pH of 7.4 with a pCO2 of 45 and pO2 of 11. Chest x-ray from today shows adequate positioning of the orotracheal tube. No evidence of any pneumothorax. No evidence of any consolidation or airspace disease. There is some atelectatic changes in lung bases bilaterally. No significant orotracheal secretions. No fever. No chills. OG every was not inserted. In fact this was an unsuccessful insertion. Note that the patient has a lap band in place. Meanwhile, he is hemodynamically stable. He still requiring sedation and the sedation is in the form of propofol running at 60 mics respiratory gram per minute. He is afebrile. Hemodynamically stable. He is on Decadron at a dose of 60 mg IV every 6 hours. White cell count of 9.9. Rest of the electrodes are normal. COVID-19 testing was negative. LFTs are normal. Creatinine is normal. No other significant events overnight. His peak airway pressure is 17 Objective - Vital Signs Vital signs: Vital Signs Temp 98.3 F 12/27/20 04:00 Pulse 72 12/27/20 07:00 Resp 18 12/27/20 07:00 BP 127/70 12/27/20 07:00 Pulse Ox 97 12/27/20 07:00 Intake & Output 12/26/20 12/27/20 12/27/20 18:59 06:59 18:59 Intake Total 993.756 6151.923 100 Output Total 1505 125 Balance 100.000 440.923 -25 Weight 188.241 kg 196.7 kg Intake: IV 1100 100 Sodium Chloride 0.9% 1, 1100 100 000 ml @ 100 mls/hr IV . Q10H [facility] Rx#:[id number] Intake, IV Titration 100.000 845.923 Amount propofoL 1,000 mg In 100.000 845.923 Empty Bag 1 bag @ Titrate IV .Q0M [facility] Rx#: [id number] Output: Urine 1505 125 Other: Voiding Method Indwelling Catheter - Exam patient is calm and comfortable likely distress, sedated, is morbidly obese with a BMI of 65 Orogastric and orotracheal tube are both in place and the patient currently intubated on a mechanical ventilator Head exam was generally normal. There was no scleral icterus or corneal arcus. Mucous membranes were moist. Neck is short and supple and symmetric and the patient has an enlarged tongue with swelling in the lip is also swollen especially in the lower lip. Orogastric and orotracheal tube are both in place. Lungs were clear to auscultation and percussion, and with normal diaphragmatic excursion. No wheezes or rales were noted. Cardiac exam revealed the PMI to be normally situated and sized. The rhythm was regular and no extrasystoles were noted during several minutes of auscultation. The first and second heart sounds were normal and physiologic splitting of the second heart sound was noted. There were no murmurs, rubs, clicks, or gallops. Abdominal exam revealed normal bowel sounds. The abdomen was soft, non-tender, and without masses, organomegaly, or appreciable enlargement of the abdominal aorta. Examination of the extremities revealed easily palpable radial, femoral and pedal pulses. There was no cyanosis, clubbing or edema. Examination of the skin revealed no evidence of significant rashes, suspicious appearing nevi or other concerning lesions. Neurologic the patient is sedated and the patient is calm and comfortable. - Labs CBC & Chem 7: 12/27/20 04:38 12/27/20 04:38 Labs: Abnormal Lab Results - Last 24 Hours (Table) 12/26/20 12/26/20 12/26/20 Range/Units 14:49 17:03 23:50 Neutrophils # (1.3-7.7) k/uL ABG pH 7.33 L (7.35-7.45) ABG pCO2 52 H (35-45) mmHg ABG pO2 75 L (83-108) mmHg ABG HCO3 28 H (21-25) mmol/L ABG Total CO2 29 H (19-24) mmol/L ABG O2 Saturation (94-97) % Sodium 136 L (137-145) mmol/L Creatinine 0.58 L (0.66-1.25) mg/dL Glucose (74-99) mg/dL POC Glucose (mg/dL) 128 H (75-99) mg/dL 12/27/20 12/27/20 12/27/20 Range/Units 04:38 04:38 05:06 Neutrophils # 8.6 H (1.3-7.7) k/uL ABG pH (7.35-7.45) ABG pCO2 (35-45) mmHg ABG pO2 (83-108) mmHg ABG HCO3 27 H (21-25) mmol/L ABG Total CO2 29 H (19-24) mmol/L ABG O2 Saturation 98.5 H (94-97) % Sodium 135 L (137-145) mmol/L Creatinine 0.49 L (0.66-1.25) mg/dL Glucose 138 H (74-99) mg/dL POC Glucose (mg/dL) (75-99) mg/dL 12/27/20 Range/Units 06:13 Neutrophils # (1.3-7.7) k/uL ABG pH (7.35-7.45) ABG pCO2 (35-45) mmHg ABG pO2 (83-108) mmHg ABG HCO3 (21-25) mmol/L ABG Total CO2 (19-24) mmol/L ABG O2 Saturation (94-97) % Sodium (137-145) mmol/L Creatinine (0.66-1.25) mg/dL Glucose (74-99) mg/dL POC Glucose (mg/dL) 121 H (75-99) mg/dL Assessment and Plan Plan: 1 acute angioedema with upper airway compromise requiring intubation mechanical ventilation. This is an Abhijeet induced angioedema as the patient has been taken ABHIJEET inhibitor for almost a year. No other obvious cause for his angioedema. 2 acute hypoxic respiratory failure secondary to above. The patient had significant tongue swelling in addition to left swelling and difficulty in swallowing and breathing and he is morbidly obese with obvious features of obstructive sleep apnea with some baseline airway compromise. As such, the patient had to be intubated and placed on a mechanical ventilator. 3 morbid obesity with a BMI of 65 4 diabetes mellitus 5 hypertension 6 previous history of lap band Plan On today's evaluation, the swelling in his upper airway seems to have improved compared to yesterday. I will give the patient at least 24 hours on steroids hoping that the swelling within his upper airway with improved. His tongue is still swollen the protruded although less compared to yesterday. He remains on a mechanical ventilator. Continue ventilator support for now. No vent setting changes on today's evaluation. Blood gases was noted. Chest x-ray was noted. Continue IV Decadron. Continue Lovenox for DVT prophylaxis. Avoid benzodiazepi yo and use Dilaudid on an as-needed basis if excess sedation is needed. Continue Pepcid. No Abhijeet inhibitors. Blood sugars under adequate control as the patient is covered with a sliding scale insulin coverage. COVID-19 testing was negative. We'll keep on the mechanical ventilator for today. Will consider extubation within the next 24 hours. We'll continue to follow. Critical care evaluation CC time >30 min Time with Patient: Greater than 30
[2020-12-27] MEDS: CHLORHEXIDINE GLUCONATE 15 ML CUP MUCOUS MEM SCH ×2 (09:26→21:49)
[2020-12-27] MEDS: FAMOTIDINE 20 MG/2 ML VIAL IV SCH ×2 (09:26→21:50)
[2020-12-27] MEDS: SODIUM CHLORIDE 0.9% 1,000 ML IV SCH ×2 (09:26→17:39)
[2020-12-27 11:29] LABS: Glucose,Whole Blood 116 mg/dL (75-99)
--- NOTE | 2020-12-27 13:30 | P.PN ---
Progress Note - Text Progress Note Date: 12/27/20 Chief Complaint: Tongue swelling This is a 55-year-old patient, was chronic stable medical conditions include hypertension, diabetes, presents to the ER with his right side of the tongue swelling. He had woken up an hour prior to coming here. Eating some cranial mix before he had taken a nap. He has been on lisinopril for about a year. Denied any shortness of breath otherwise. When the swelling progressed. He had gone to the pharmacy to get some Benadryl but he was told to come in here instead. He started choking in the ER and patient had to be intubated. Currently the ICU. Mother at the bedside. Patient on the ventilator with setting of 50/5 and propofol drip. Patient did receive IV Pepcid, IV Benadryl, IV Solu-Medrol. 12/27/2020: ICU. Intubated. FiO2 15 a PEEP of 5. Sinus rhythm. Had some bleeding from the mouth. On IV propofol. NG tube could not be placed. Review of systems: Patient intubated Active Medications Chlorhexidine Gluconate (Chlorhexidine Gluconate 15 Ml Cup) 15 ml MUCOUS MEM BID [facility] Last Admin: 12/27/20 09:26 Dose: 15 ml Documented by: Dexamethasone Sodium Phosphate (Dexamethasone Sod Phosphate 10 Mg/Ml 1 Ml Vial) 6 mg IV Q6H [facility] Last Admin: 12/27/20 09:26 Dose: 6 mg Documented by: Diphenhydramine HCl (Diphenhydramine 50 Mg/Ml 1 Ml Vial) 50 mg IVP Q6HR [facility] Last Admin: 12/27/20 05:36 Dose: 50 mg Documented by: Famotidine (Famotidine 20 Mg/2 Ml Vial) 20 mg IV Q12HR [facility] Last Admin: 12/27/20 09:26 Dose: 20 mg Documented by: Hydromorphone HCl (Hydromorphone 0.5 Mg/0.5 Ml Syringe) 0.5 mg IVP Q3HR PRN PRN Reason: Pain Last Admin: 12/26/20 17:01 Dose: 0.5 mg Documented by: Propofol 1,000 mg/ IV Solution 100 mls @ 0 mls/hr IV .Q0M [facility]; Protocol Last Admin: 12/27/20 13:20 Dose: 60 mcg/kg/min, 70.812 mls/hr Documented by: Sodium Chloride (Saline 0.9%) 1,000 mls @ 100 mls/hr IV .Q10H [facility] Last Admin: 12/27/20 09:26 Dose: Not Given Documented by: Insulin Aspart (Insulin Aspart (Novolog) 100 Unit/Ml Vial) 0 unit SQ Q6H [facility]; Protocol Last Admin: 12/27/20 06:24 Dose: Not Given Documented by: Naloxone HCl (Naloxone 0.4 Mg/Ml 1 Ml Vial) 0.2 mg IV Q2M PRN PRN Reason: Opioid Reversal Past medical history to include: Diabetes, hypertension, LAP-BAND Social history: Lives with his mother for last 6 months. 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 Does not smoke, possible some alcohol. Prior to that not known. with 2 children. Family history: Reviewed, noncontributory to presentation Physical examination: VITAL SIGNS: 98.2, 69, 20, 140/76, 97% on the ventilator GENERAL: BMI 65, laying in bed intubated. EYES: Pupils equal. Conjunctiva normal. HEENT: External appearance of nose and ears normal, oral cavity endotracheal tube. NECK: JVD unable to assess; masses not palpable. HEART: First and second heart sounds are normal; some edema. LUNGS: Respiratory rate normal; decreased breath sound. ABDOMEN: Soft, nontender, liver spleen not palpable, no masses palpable Rudd catheter. PSYCH: Sedatedl. INVESTIGATIONS, reviewed in the clinical context: December 27: WBC 9.9 hemoglobin 13.5 platelets 280 potassium 4.4 creatinine 0.49 WBC 8.7 hemoglobin 13.8 platelets 270 sodium 136 potassium 4.6 BUN 13 creatinine 0.58 Coronavirus [PCR]: Not detected Telemetry strip personally reviewed by me: Sinus rhythm Chest x-ray film personally reviewed by me-ET tube. Some venous congestion. Atelectasis. Assessment and plan: -This patient had a bag of cranial mix and then went to sleep. Presented with swelling of the right swelling of tongue that progressed to acute respiratory failure with patient choking and had to be intubated to protect the airways. It is unclear as to the reason for his ALLERGIC reaction. Severe Steroids, Pepcid, Benadryl -Acute hypoxic respiratory failure, requiring ventilator support On propofol -Morbid obesity BMI 65 -Essential hypertension Follow blood pressure closely -Diabetes mellitus type 2, on oral hypoglycemic Expect Accu-Cheks to go because patient was steroids. Follow Accu-Cheks closely. ICU. Intubated. Propofol drip. Continue supportive care. Follow-up in station mechanic.
[2020-12-27 17:31] LABS: Glucose,Whole Blood 114 mg/dL (75-99)
[2020-12-27 23:17] LABS: Glucose,Whole Blood 117 mg/dL (75-99)
[2020-12-28 04:04] LABS: Basophils % (A) 0 %; Eosinophils # (A) 0.2 k/uL (0-0.7); Eosinophils % (A) 2 %; HCT 41.7 % (39.0-53.0); Lymphocytes % (A) 7 %; MCH 27.2 pg (25.0-35.0); MCHC 31.1 g/dL (31.0-37.0); MCV 87.5 fL (80.0-100.0); Monocytes # (A) 0.5 k/uL (0-1.0); Monocytes % (A) 4 %; Neutrophils # (A) 11.6 k/uL (1.3-7.7); Neutrophils % (A) 87 %; Platelet Count 261 k/uL (150-450); RBC 4.77 m/uL (4.30-5.90); RDW 13.7 % (11.5-15.5); WBC 13.4 k/uL (3.8-10.6)
[2020-12-28 04:36] LABS: ALT 17 U/L (4-49); AST 17 U/L (17-59); African American GFR (CKD) >90 (>60 ml/min/1.73 sqM); Albumin 3.3 g/dL (3.5-5.0); Alkaline Phosphatase 52 U/L (38-126); Anion Gap 7 mmol/L; Blood Urea Nitrogen 11 mg/dL (9-20); Calcium 8.9 mg/dL (8.4-10.2); Carbon Dioxide 23 mmol/L (22-30); Chloride 108 mmol/L (98-107); Glucose 132 mg/dL (74-99); Non-African American GFR(CKD) >90 (>60 ml/min/1.73 sqM); Potassium 4.2 mmol/L (3.5-5.1); Sodium 138 mmol/L (137-145); Total Bilirubin 0.2 mg/dL (0.2-1.3); Total Protein 6.2 g/dL (6.3-8.2)
[2020-12-28 04:53] LABS: ABG Base Excess 3.6 mmol/L; ABG HCO3 28 mmol/L (21-25); ABG PCO2 42 mmHg (35-45); ABG PH 7.43 (7.35-7.45); ABG PO2 115 mmHg (83-108); ABG TCO2 29 mmol/L (19-24); Allen Test Performed? Yes
[2020-12-28] MEDS: SODIUM CHLORIDE 0.9% 1,000 ML IV SCH ×2 (04:57→16:54)
[2020-12-28] MEDS: DEXAMETHASONE SOD PHOSPHATE 10 MG/ML 1 ML VIAL IV SCH ×3 (05:01→21:36)
[2020-12-28] MEDS: diphenhydrAMINE 50 MG/ML 1 ML VIAL IVP SCH (05:12)
[2020-12-28 05:20] LABS: Glucose,Whole Blood 113 mg/dL (75-99)
[2020-12-28] MEDS: INSULIN ASPART (NovoLOG) 100 UNIT/ML VIAL SQ SCH ×4 (05:20→21:31)
--- NOTE | 2020-12-28 07:16 | XR ---
EXAMINATION TYPE: XR chest 1V portable DATE OF EXAM: 12/28/2020 HISTORY: Shortness of breath. COMPARISON: 12/27/2020 TECHNIQUE: Single view of the chest is submitted. FINDINGS: Demonstrated are scattered senescent parenchymal change. Patchy basilar infiltrates persist without significant interval change. The heart is stable. Hilar and mediastinal structures are within normal limits. Degenerative changes are seen of the dorsal spine. IMPRESSION: 1. Patchy basilar infiltrates persist without significant interval change.
[2020-12-28] MEDS: FAMOTIDINE 20 MG/2 ML VIAL IV SCH ×2 (08:52→21:35)
[2020-12-28] MEDS: CHLORHEXIDINE GLUCONATE 15 ML CUP MUCOUS MEM SCH (08:52)
--- NOTE | 2020-12-28 09:36 | P.PN ---
Subjective Progress Note Date: 12/28/20 Principal diagnosis: Angioedema, acute hypoxic respiratory failure 55-year-old morbidly obese male patient, currently intubated because of a massive angioedema causing significant amount of swelling in his tongue and airway compromise. The patient was taken LORENZO inhibitor Zestril for blood pressure. He came into the emergency department because of some tongue swelling and ultimately got to a point where he was unable to swallow and he was drooling and he was having respiratory difficulties and anesthesia intubated the patient and placed on a mechanical ventilator. At this point in time, the lips and tongues are still swollen. The patient was given epinephrine without any response prior to intubation. He was also given Solu-Medrol 125 mg IV 1, Benadryl 50 mg IV 1 and he was also given TXA and the bleeding. No Hypotension. At This Point in Time, He Is Intubated on a Mechanical Ventilator Assist Control Mode at the Rate of 14 Tidal Volume of 450 FiO2 100% with a PEEP of 5. Chest X-Ray Post Intubation , showed no acute abnormalities. ET tube is in a good location. There are some atelectatic changes in the right upper lobe and there is fluid in the right lung fissure. There is cardiomegaly in the lung volumes are small. ET tube is seen approximately 1 cm above the otilio. Currently is on probable running at 80 mg/kg per minute. He is also on IV f luids of 0.9 mL an hour. He is diabetic and his blood sugar is running at normal range. Normal renal function. Normal electrolytes. Normal white count. COVID-19 testing has not been completed yet. On today's evaluation of the 2020, the patient is being seen for a follow- up. He is a large or obese gentleman with a body mass index of 67.9 with developed angioedema. He had significant airway compromise knowing that he may have an underlying obstructive sleep apnea in addition. His tongue is still swollen is protruded on today's evaluation. He remains on Decadron. He remains on a mechanical ventilator. His assist-control mode with a tidal volume of 450 and FiO2 has been drop down to 50% with a PEEP of 5 and a respiratory rate of 14. His morning blood gases showed a pH of 7.4 with a pCO2 of 45 and pO2 of 11. Chest x-ray from today shows adequate positioning of the orotracheal tube. No evidence of any pneumothorax. No evidence of any consolidation or airspace disease. There is some atelectatic changes in lung bases bilaterally. No significant orotracheal secretions. No fever. No chills. OG every was not inserted. In fact this was an unsuccessful insertion. Note that the patient has a lap band in place. Meanwhile, he is hemodynamically stable. He still requiring sedation and the sedation is in the form of propofol running at 60 mics respiratory gram per minute. He is afebrile. Hemodynamically stable. He is on Decadron at a dose of 60 mg IV every 6 hours. White cell count of 9.9. Rest of the electrodes are normal. COVID-19 testing was negative. LFTs are normal. Creatinine is normal. No other significant events overnight. His peak airway pressure is 17 On 12/28/2020 patient seen in follow-up in the intensive care unit, he remains sedated, and intubated on assist control mode of ventilation with a rate of 14, tidal on this 450, FiO2 of 50% and PEEP of 5, this morning's blood gas shows pO2 of 1:15, pCO2 of 42, and pH of 7.43, this was done on FiO2 of 50%, patient is currently on 60 mics of the prevent, and 0.9 normal seen at a rate of 100 ML per hour, no tube feedings were initiated in anticipation of weaning and extubation. No acute events overnight. His chest x-ray today shows patchy basilar infiltrates without significant interval change, no significant secretions out of the ET tube, sputum culture has been sent, and pending at this time. Patient has had no fever or chills. Today's labs have been reviewed showing white blood cell count of 13.4, hemoglobin of 13, sodium is 138, potassium is 4.2, chloride is 108, BUN is 11 creatinine 0.53, LFTs were within normal limits. Patient remains on Decadron 6 mg every 6 hours IV push, in addition to Benadryl 50 mg every 6 hours. His morning he has a positive cuff leak. We will proceed with a spontaneous awakening trials and proceed to spontaneous breathing trials and ex tubation Objective - Vital Signs Vital signs: Vital Signs Temp 98.6 F 12/28/20 08:00 Pulse 71 12/28/20 09:00 Resp 26 H 12/28/20 09:00 BP 124/66 12/28/20 09:00 Pulse Ox 98 12/28/20 09:00 Intake & Output 12/27/20 12/28/20 12/28/20 18:59 06:59 18:59 Intake Total 1500 1605.109 400 Output Total 1600 1130 130 Balance -100 475.109 270 Weight 197.1 kg Intake: IV 1200 1200 300 Sodium Chloride 0.9% 1, 1200 1200 300 000 ml @ 100 mls/hr IV . Q10H TOMMY Rx#:[id number] Intake, IV Titration 300 405.109 100 Amount propofoL 1,000 mg In 300 405.109 100 Empty Bag 1 bag @ Titrate IV .Q0M TOMMY Rx#: [id number] Output: Urine 1600 1130 130 Other: Voiding Method Indwelling Catheter Indwelling Catheter - Exam GENERAL EXAM: sedated, intubated, morbidly obese -[place]ish male, on ass ist control mode of ventilation with FiO2 of 50% and PEEP of 5 comfortable in no apparent distress. HEAD: Normocephalic/atraumatic. EYES: Normal reaction of pupils, equal size. Conjunctiva pink, sclera white. NOSE: Clear with pink turbinates. THROAT: No erythema or exudates. NECK: No masses, no JVD, no thyroid enlargement, no adenopathy. CHEST: No chest wall deformity. Symmetrical expansion. LUNGS: Equal air entry with no crackles, wheeze, rhonchi or dullness. CVS: Regular rate and rhythm, normal S1 and S2, no gallops, no murmurs, no rubs ABDOMEN: Soft, nontender. No hepatosplenomegaly, normal bowel sounds, no guarding or rigidity. EXTREMITIES: No clubbing, 1+ lower extremity edema no cyanosis, 2+ pulses and upper and lower extremities. MUSCULOSKELETAL: Muscle strength and tone normal. SPINE: No scoliosis or deformity SKIN: No rashes CENTRAL NERVOUS SYSTEM: sedated, intubated No focal deficits, tone is normal in all 4 extremities. - Labs CBC & Chem 7: 12/28/20 03:49 12/28/20 03:49 Labs: Abnormal Lab Results - Last 24 Hours (Table) 12/27/20 12/27/20 12/27/20 Range/Units 11:28 17:30 23:14 WBC (3.8-10.6) k/uL Neutrophils # (1.3-7.7) k/uL ABG pO2 (83-108) mmHg ABG HCO3 (21-25) mmol/L ABG Total CO2 (19-24) mmol/L ABG O2 Saturation (94-97) % Chloride (98-107) mmol/L Creatinine (0.66-1.25) mg/dL Glucose (74-99) mg/dL POC Glucose (mg/dL) 116 H 114 H 117 H (75-99) mg/dL Total Protein (6.3-8.2) g/dL Albumin (3.5-5.0) g/dL 12/28/20 12/28/20 12/28/20 Range/Units 03:49 03:49 04:38 WBC 13.4 H (3.8-10.6) k/uL Neutrophils # 11.6 H (1.3-7.7) k/uL ABG pO2 115 H (83-108) mmHg ABG HCO3 28 H (21-25) mmol/L ABG Total CO2 29 H (19-24) mmol/L ABG O2 Saturation 99.0 H (94-97) % Chloride 108 H (98-107) mmol/L Creatinine 0.53 L (0.66-1.25) mg/dL Glucose 132 H (74-99) mg/dL POC Glucose (mg/dL) (75-99) mg/dL Total Protein 6.2 L (6.3-8.2) g/dL Albumin 3.3 L (3.5-5.0) g/dL 12/28/20 Range/Units 05:18 WBC (3.8-10.6) k/uL Neutrophils # (1.3-7.7) k/uL ABG pO2 (83-108) mmHg ABG HCO3 (21-25) mmol/L ABG Total CO2 (19-24) mmol/L ABG O2 Saturation (94-97) % Chloride (98-107) mmol/L Creatinine (0.66-1.25) mg/dL Glucose (74-99) mg/dL POC Glucose (mg/dL) 113 H (75-99) mg/dL Total Protein (6.3-8.2) g/dL Albumin (3.5-5.0) g/dL Microbiology - Last 24 Hours (Table) 12/27/20 21:00 Gram Stain - Preliminary Sputum Sputum Culture - Preliminary Assessment and Plan Plan: Assessment: #1. Acute angioedema with upper airway compromise requiring intubation and mechanical ventilation. 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 Patient was on LORENZO inhibitor for almost a year. Patient has been treated with IV steroids, Benadryl, and Pepcid. There is a cuff leak on today's evaluation on 12/28/2020 #2. Acute hypoxic respiratory failure secondary to the above. The patient had significant swelling in addition to the left facial swelling and difficulty in swallowing and breathing. In addition patient has morbid obesity with obvious features of obstructive sleep apnea with some baseline airway compromise #3. Morbid obesity with BMI of 68.1 kg/m #4. Diabetes mellitus type 2 #5. Hypertension #6. Previous history of lab band surgery for morbid obesity Plan: On today's evaluation patient has a positive cuff leak We'll proceed to spontaneous awakening trial of spontaneous breathing trial and proceed to extubation if tolerates both We will add Levaquin for empiric antibiotic coverage, serum culture has been sent and pending No fever or chills, no leukocytosis, chest x-ray showing some patchy basilar infiltrates We'll send a pro-calcitonin level We'll continue with IV Decadron, will likely discontinue Benadryl, continue Pepcid We will keep nothing by mouth for at least 6 hours after extubation We'll continue to closely follow I performed a history & physical examination of the patient and discussed their management with my nurse practitioner, Giselle Rogers. I reviewed the nurse practitioner's note and agree with the documented findings and plan of care. Lung sounds are positive for diminished breath sounds throughout the lung galicia. The findings and the impression was discussed with the patient. I attest to the documentation by the nurse practitioner. Time with Patient: Greater than 30
[2020-12-28 11:40] LABS: Glucose,Whole Blood 103 mg/dL (75-99)
[2020-12-28] MEDS: LEVOFLOXACIN 500 MG TAB PO SCH (16:53)
[2020-12-28 16:58] LABS: Glucose,Whole Blood 94 mg/dL (75-99)
[2020-12-28 20:58] LABS: Glucose,Whole Blood 89 mg/dL (75-99)
--- NOTE | 2020-12-28 21:02 | P.PN ---
Progress Note - Text Progress Note Date: 12/28/20 Chief Complaint: Tongue swelling This is a 55-year-old patient, was chronic stable medical conditions include hypertension, diabetes, presents to the ER with his right side of the tongue swelling. He had woken up an hour prior to coming here. Eating some cranial mix before he had taken a nap. He has been on lisinopril for about a year. Denied any shortness of breath otherwise. When the swelling progressed. He had gone to the pharmacy to get some Benadryl but he was told to come in here instead. He started choking in the ER and patient had to be intubated. Currently the ICU. Mother at the bedside. Patient on the ventilator with setting of 50/5 and propofol drip. Patient did receive IV Pepcid, IV Benadryl, IV Solu-Medrol. 12/27/2020: ICU. Intubated. FiO2 15 a PEEP of 5. Sinus rhythm. Had some bleeding from the mouth. On IV propofol. NG tube could not be placed. 01/05/2021: ICU. Extubated. Laying in bed. Awake. Mother the bedside. Sinus rhythm. Not short of breath. Review of systems: Was done for constitutional, cardiovascular, GI, pulmonary. relevant finding as above Active Medications Dexamethasone Sodium Phosphate (Dexamethasone Sod Phosphate 10 Mg/Ml 1 Ml Vial) 6 mg IV Q12H TOMMY Enoxaparin Sodium (Enoxaparin 40 Mg/0.4 Ml Syringe) 40 mg SQ DAILY TOMMY Famotidine (Famotidine 20 Mg/2 Ml Vial) 20 mg IV Q12HR [facility] Last Admin: 12/28/20 08:52 Dose: 20 mg Documented by: Hydromorphone HCl (Hydromorphone 0.5 Mg/0.5 Ml Syringe) 0.5 mg IVP Q3HR PRN PRN Reason: Pain Last Admin: 12/26/20 17:01 Dose: 0.5 mg Documented by: Insulin Aspart (Insulin Aspart (Novolog) 100 Unit/Ml Vial) 0 unit SQ ACHS [facility]; Protocol Last Admin: 12/28/20 17:06 Dose: Not Given Documented by: Levofloxacin (Levofloxacin 500 Mg Tab) 500 mg PO Q24H [facility] Last Admin: 12/28/20 16:53 Dose: 500 mg Documented by: Naloxone HCl (Naloxone 0.4 Mg/Ml 1 Ml Vial) 0.2 mg IV Q2M PRN PRN Reason: Opioid Reversal Sodium Chloride (Sodium Chloride 0.9% Flush 10 Ml Syringe) 10 ml IV BID TOMMY Past medical history to include: Diabetes, hypertension, LAP-BAND Social history: Lives with his mother for last 6 months. 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 Does not smoke, possible some alcohol. Prior to that not known. with 2 children. Family history: Reviewed, noncontributory to presentation Physical examination: VITAL SIGNS: Weight 8.7, 50, 16, 146-72, 97% on 4 L GENERAL: BMI 65, laying in bed awake EYES: Pupils equal. Conjunctiva normal. HEENT: External appearance of nose and ears normal, oral cavity endotracheal tube. NECK: JVD unable to assess; masses not palpable. HEART: First and second heart sounds are normal; some edema. LUNGS: Respiratory rate normal; decreased breath sound. ABDOMEN: Soft, nontender, liver spleen not palpable, no masses palpable Rudd catheter. PSYCH: Awake, answering questions INVESTIGATIONS, reviewed in the clinical context: December 28: WBC 13.4 hemoglobin 13 potassium 4.2 creatinine 0.53 December 27: WBC 9.9 hemoglobin 13.5 platelets 280 potassium 4.4 creatinine 0.49 WBC 8.7 hemoglobin 13.8 platelets 270 sodium 136 potassium 4.6 BUN 13 creatinine 0.58 Coronavirus [PCR]: Not detected Telemetry strip personally reviewed by me: Sinus rhythm Chest x-ray film personally reviewed by me-ET tube. Some venous congestion. Atelectasis. Assessment and plan: -This patient had a bag of cranial mix and then went to sleep. Presented with swelling of the right swelling of tongue that progressed to acute respiratory failure with patient choking and had to be intubated to protect the airways. It is unclear as to the reason for his ALLERGIC reaction. Cut back dexamethasone to 6 mg every 12. -Acute hypoxic respiratory failure, requiring ventilator support On propofol. Extubated today December 28. -Morbid obesity BMI 65 -Essential hypertension Follow blood pressure closely -Diabetes mellitus type 2, on oral hypoglycemic Expect Accu-Cheks to go because patient was steroids. Follow Accu-Cheks closely. Continue current medication treatment plan. Care was discussed with the mother the bedside. Cut back dexamethasone to 6 mg every 12. Follow Accu-Cheks. Diet to be addressed for pulmonary.
[2020-12-29 04:18] VITALS: RESP 18
[2020-12-29 05:00] LABS: Basophils % (A) 0 %; Eosinophils # (A) 0.1 k/uL (0-0.7); Eosinophils % (A) 1 %; HCT 41.5 % (39.0-53.0); HGB 12.8 gm/dL (13.0-17.5); Lymphocytes # (A) 1.2 k/uL (1.0-4.8); Lymphocytes % (A) 9 %; MCH 27.1 pg (25.0-35.0); MCHC 30.7 g/dL (31.0-37.0); MCV 88.4 fL (80.0-100.0); Mean Platelet Volume 7.7; Monocytes # (A) 0.8 k/uL (0-1.0); Monocytes % (A) 7 %; Neutrophils # (A) 10.4 k/uL (1.3-7.7); Neutrophils % (A) 82 %; Platelet Count 238 k/uL (150-450); RDW 13.7 % (11.5-15.5); WBC 12.7 k/uL (3.8-10.6)
[2020-12-29 05:28] LABS: ALT 18 U/L (4-49); AST 19 U/L (17-59); African American GFR (CKD) >90 (>60 ml/min/1.73 sqM); Albumin 3.3 g/dL (3.5-5.0); Alkaline Phosphatase 45 U/L (38-126); Anion Gap 6 mmol/L; Blood Urea Nitrogen 19 mg/dL (9-20); Calcium 8.7 mg/dL (8.4-10.2); Carbon Dioxide 24 mmol/L (22-30); Chloride 108 mmol/L (98-107); Glucose 109 mg/dL (74-99); Non-African American GFR(CKD) >90 (>60 ml/min/1.73 sqM); Potassium 4.2 mmol/L (3.5-5.1); Sodium 138 mmol/L (137-145); Total Bilirubin 0.2 mg/dL (0.2-1.3); Total Protein 6.2 g/dL (6.3-8.2)
[2020-12-29 05:29] VITALS: BP 107/59; PULSE 92
[2020-12-29 06:22] LABS: Glucose,Whole Blood 108 mg/dL (75-99)
[2020-12-29] MEDS: INSULIN ASPART (NovoLOG) 100 UNIT/ML VIAL SQ SCH ×2 (06:33→14:33)
--- NOTE | 2020-12-29 07:55 | XR ---
EXAMINATION TYPE: XR chest 1V portable DATE OF EXAM: 12/29/2020 Comparison: 12/28/2020 Clinical History: 55-year-old male shortness of breath Findings: Heart upper limits of normal in size. Patchy lower lung opacities have improved. Some residual patchy density is present at the left base. Impression: Significantly improving lower lung infiltrates. Some residual density is present at the left base.
[2020-12-29] MEDS ORDERED: ENOXAPARIN 40 MG/0.4 ML SYRINGE SQ SCH (09:00)
[2020-12-29] MEDS: DEXAMETHASONE SOD PHOSPHATE 10 MG/ML 1 ML VIAL IV SCH (11:08)
[2020-12-29] MEDS: FAMOTIDINE 20 MG/2 ML VIAL IV SCH (11:08)
[2020-12-29] MEDS: LEVOFLOXACIN 500 MG TAB PO SCH (11:09)
--- NOTE | 2020-12-29 11:28 | P.PN ---
Subjective Progress Note Date: 12/29/20 Principal diagnosis: Angioedema, acute hypoxic respiratory failure 55-year-old morbidly obese male patient, currently intubated because of a massive angioedema causing significant amount of swelling in his tongue and airway compromise. The patient was taken LORENZO inhibitor Zestril for blood pressure. He came into the emergency department because of some tongue swelling and ultimately got to a point where he was unable to swallow and he was drooling and he was having respiratory difficulties and anesthesia intubated the patient and placed on a mechanical ventilator. At this point in time, the lips and tongues are still swollen. The patient was given epinephrine without any response prior to intubation. He was also given Solu-Medrol 125 mg IV 1, Benadryl 50 mg IV 1 and he was also given TXA and the bleeding. No Hypotension. At This Point in Time, He Is Intubated on a Mechanical Ventilator Assist Control Mode at the Rate of 14 Tidal Volume of 450 FiO2 100% with a PEEP of 5. Chest X-Ray Post Intubation , showed no acute abnormalities. ET tube is in a good location. There are some atelectatic changes in the right upper lobe and there is fluid in the right lung fissure. There is cardiomegaly in the lung volumes are small. ET tube is seen approximately 1 cm above the otilio. Currently is on probable running at 80 mg/kg per minute. He is also on IV f luids of 0.9 mL an hour. He is diabetic and his blood sugar is running at normal range. Normal renal function. Normal electrolytes. Normal white count. COVID-19 testing has not been completed yet. On today's evaluation of the 2020, the patient is being seen for a follow- up. He is a large or obese gentleman with a body mass index of 67.9 with developed angioedema. He had significant airway compromise knowing that he may have an underlying obstructive sleep apnea in addition. His tongue is still swollen is protruded on today's evaluation. He remains on Decadron. He remains on a mechanical ventilator. His assist-control mode with a tidal volume of 450 and FiO2 has been drop down to 50% with a PEEP of 5 and a respiratory rate of 14. His morning blood gases showed a pH of 7.4 with a pCO2 of 45 and pO2 of 11. Chest x-ray from today shows adequate positioning of the orotracheal tube. No evidence of any pneumothorax. No evidence of any consolidation or airspace disease. There is some atelectatic changes in lung bases bilaterally. No significant orotracheal secretions. No fever. No chills. OG every was not inserted. In fact this was an unsuccessful insertion. Note that the patient has a lap band in place. Meanwhile, he is hemodynamically stable. He still requiring sedation and the sedation is in the form of propofol running at 60 mics respiratory gram per minute. He is afebrile. Hemodynamically stable. He is on Decadron at a dose of 60 mg IV every 6 hours. White cell count of 9.9. Rest of the electrodes are normal. COVID-19 testing was negative. LFTs are normal. Creatinine is normal. No other significant events overnight. His peak airway pressure is 17 On 12/28/2020 patient seen in follow-up in the intensive care unit, he remains sedated, and intubated on assist control mode of ventilation with a rate of 14, tidal on this 450, FiO2 of 50% and PEEP of 5, this morning's blood gas shows pO2 of 1:15, pCO2 of 42, and pH of 7.43, this was done on FiO2 of 50%, patient is currently on 60 mics of the prevent, and 0.9 normal seen at a rate of 100 ML per hour, no tube feedings were initiated in anticipation of weaning and extubation. No acute events overnight. His chest x-ray today shows patchy basilar infiltrates without significant interval change, no significant secretions out of the ET tube, sputum culture has been sent, and pending at this time. Patient has had no fever or chills. Today's labs have been reviewed showing white blood cell count of 13.4, hemoglobin of 13, sodium is 138, potassium is 4.2, chloride is 108, BUN is 11 creatinine 0.53, LFTs were within normal limits. Patient remains on Decadron 6 mg every 6 hours IV push, in addition to Benadryl 50 mg every 6 hours. His morning he has a positive cuff leak. We will proceed with a spontaneous awakening trials and proceed to spontaneous breathing trials and ex tubation On today's evaluation on 12/29/2020 patient seen in follow-up in the intensive care unit, he was successfully weaned and extubated from mechanical ventilator yesterday on 12/28/2020, tolerating extubation quite well so far. Breathing comfortably, lung sounds are clear, patient is speaking, and not having any difficulty swallowing, no voice hoarseness. No stridor. He is currently on 3 L of oxygen pulse ox is 96%, afebrile, hemodynamically he stable, his dexamethasone dose has been cut back to 60 mg every 12 hours, we discontinued the Benadryl yesterday, overnight his had no acute events, he is tolerating soft diet, no difficulty swallowing, appetite is fair. Today's chest x-ray shows significant the improving lower lung infiltrates with some residual density at the left base. No maintenance IV fluids, patient has been hep-locked. Labs have been reviewed showing white blood cell count of 4.7, hemoglobin is 12.8, sodium is 138, potassium is 4.2, chloride is 108, BUN is 19 creatinine 0.59, LFTs are within normal limits. Objective - Vital Signs Vital signs: Vital Signs Temp 98.3 F 12/29/20 05:22 Pulse 92 12/29/20 05:22 Resp 18 12/29/20 05:22 BP 107/59 12/29/20 05:22 Pulse Ox 96 12/29/20 05:22 Intake & Output 12/28/20 12/29/20 12/29/20 18:59 06:59 18:59 Intake Total 1686.330 490 Output Total 1285 325 Balance 401.330 165 Weight 200.7 kg Intake: IV 1100 Sodium Chloride 0.9% 1, 1100 000 ml @ 100 mls/hr IV . Q10H TOMMY Rx#:[id number] Intake, IV Titration 186.330 Amount propofoL 1,000 mg In 186.330 Empty Bag 1 bag @ Titrate IV .Q0M TOMMY Rx#: [id number] Oral 400 490 Output: Urine 1285 325 Other: Voiding Method Indwelling Catheter Indwelling Catheter Indwelling Catheter - Exam GENERAL EXAM: Awake and alert, morbidly obese -Vietnamese male, on his oxygen with a pulse ox of 95% comfortable in no apparent distress. HEAD: Normocephalic/atraumatic. EYES: Normal reaction of pupils, equal size. Conjunctiva pink, sclera white. NOSE: Clear with pink turbinates. THROAT: No erythema or exudates. NECK: No masses, no JVD, no thyroid enlargement, no adenopathy. CHEST: No chest wall deformity. Symmetrical expansion. LUNGS: Equal air entry with no crackles, wheeze, rhonchi or dullness. CVS: Regular rate and rhythm, normal S1 and S2, no gallops, no murmurs, no rubs ABDOMEN: Soft, nontender. No hepatosplenomegaly, normal bowel sounds, no guarding or rigidity. EXTREMITIES: No clubbing, 1+ lower extremity edema no cyanosis, 2+ pulses and upper and lower extremities. MUSCULOSKELETAL: Muscle strength and tone normal. SPINE: No scoliosis or deformity SKIN: No rashes CENTRAL NERVOUS SYSTEM: Awake and alert, oriented 3 No focal deficits, tone is normal in all 4 extremities. - Labs CBC & Chem 7: 12/29/20 04:47 12/29/20 04:47 Labs: Abnormal Lab Results - Last 24 Hours (Table) 12/28/20 12/29/20 12/29/20 Range/Units 11:38 04:47 04:47 WBC 12.7 H (3.8-10.6) k/uL Hgb 12.8 L (13.0-17.5) gm/dL MCHC 30.7 L (31.0-37.0) g/dL Neutrophils # 10.4 H (1.3-7.7) k/uL Chloride 108 H (98-107) mmol/L Creatinine 0.59 L (0.66-1.25) mg/dL Glucose 109 H (74-99) mg/dL POC Glucose (mg/dL) 103 H (75-99) mg/dL Total Protein 6.2 L (6.3-8.2) g/dL Albumin 3.3 L (3.5-5.0) g/dL 12/29/20 Range/Units 06:20 WBC (3.8-10.6) k/uL Hgb (13.0-17.5) gm/dL MCHC (31.0-37.0) g/dL Neutrophils # (1.3-7.7) k/uL Chloride (98-107) mmol/L Creatinine (0.66-1.25) mg/dL Glucose (74-99) mg/dL POC Glucose (mg/dL) 108 H (75-99) mg/dL Total Protein (6.3-8.2) g/dL Albumin (3.5-5.0) g/dL Microbiology - Last 24 Hours (Table) 12/27/20 21:00 Gram Stain - Preliminary Sputum Sputum Culture - Preliminary Assessment and Plan Plan: Assessment: #1. Acute angioedema with upper airway compromise requiring intubation and mechanical ventilation. 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 Patient was on LORENZO inhibitor for almost a year. Patient has been treated with IV steroids, Benadryl, and Pepcid. There is a cuff leak on today's evaluation on 12/28/2020 patient was successfully weaned and extubated on 12/28/2020, tolerating it quite well so far, no stridor, no difficulty breathing, no voice hoarseness, no tongue protrusion. Patient is breathing comfortably, tolerating oral diet #2. Acute hypoxic respiratory failure secondary to the above. The patient had significant swelling in addition to the left facial swelling and difficulty in swallowing and breathing. In addition patient has morbid obesity with obvious features of obstructive sleep apnea with some baseline airway compromise #3. Morbid obesity with BMI of 68.1 kg/m #4. Diabetes mellitus type 2 #5. Hypertension #6. Previous history of lab band surgery for morbid obesity Plan: Patient was weaned and extubated from mechanical ventilation yesterday tolerated extubation quite well, no voice hoarseness, no difficulty breathing, no stridor, no difficulty swallowing Date home oxygen assessment Vital signs stable, breathing comfortably, no altered mentation, no fever or chills Today's chest x-ray has been reviewed Sputum culture is showing many PMNs, final culture is pending From a pulmonary perspective patient is stable for discharge home, he didn't finish outpatient course of Levaquin and prednisone taper Follow up with Dr. Park in the office in one or 2 weeks, and he will need outpatient sleep study to rule out obstructive sleep apnea as he has typiical features consistent with obstructive sleep apnea I performed a history & physical examination of the patient and discussed their management with my nurse practitioner, Giselle Rogers. I reviewed the nurse practitioner's note and agree with the documented findings and plan of care. Lung sounds are positive for diminished breath sounds throughout the lung galicia. The findings and the impression was discussed with the patient. I attest to the documentation by the nurse practitioner. Time with Patient: Less than 30
[2020-12-29 11:51] LABS: Glucose,Whole Blood 112 mg/dL (75-99)
[2020-12-29 14:32] VITALS: TEMP 97.6
[2020-12-29] MEDS ORDERED: FAMOTIDINE 20 MG TAB PO SCH (21:00)
--- NOTE | 2020-12-30 18:54 | P.DS ---
Providers Date of admission: 12/26/20 16:02 Expected date of discharge: 12/29/20 Attending physician: Alden Pope Consults: 12/26/20 15:57 Consult Physician Routine Consulting Provider: Roderick Nath Consult Reason/Comments: angioedema, suspected eduardo induced Do you want consulting provider notified?: Yes Consult Physician Stat Consulting Provider: Trice Park Consult Reason/Comments: vent dependance, suspected eduardo induced angioedema Do you want consulting provider notified?: Already Contacted Primary care physician: Sarah Marte MD Hospital Course: Chief Complaint: Tongue swelling This is a 55-year-old patient, was chronic stable medical conditions include hypertension, diabetes, presents to the ER with his right side of the tongue swelling. He had woken up an hour prior to coming here. Eating some cranial mix before he had taken a nap. He has been on lisinopril for about a year. Denied any shortness of breath otherwise. When the swelling progressed. He had gone to the pharmacy to get some Benadryl but he was told to come in here instead. He started choking in the ER and patient had to be intubated. Currently the ICU. Mother at the bedside. Patient on the ventilator with setting of 50/5 and propofol drip. Patient did receive IV Pepcid, IV Benadryl, IV Solu-Medrol. 12/27/2020: ICU. Intubated. FiO2 15 a PEEP of 5. Sinus rhythm. Had some bleeding from the mouth. On IV propofol. NG tube could not be placed. 12/28/2020: ICU. Extubated. Laying in bed. Awake. Mother the bedside. Sinus rhythm. Not short of breath. December 29: Doing better. Tolerated diet. Breathing better. We'll discharge with Levaquin. Discharge stable. Discussed with the patient and mother. Cleared by pulmonary. Consultation: Dr. Park from pulmonary Past medical history to include: Diabetes, hypertension, LAP-BAND Social history: Lives with his mother for last 6 months. 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 Does not smoke, possible some alcohol. Prior to that not known. with 2 children. Family history: Reviewed, noncontributory to presentation Physical examination: VITAL SIGNS: 97.6, 92, 18, 107 with 59, 90% on room air GENERAL: BMI 65, planning, comfortable EYES: Pupils equal. Conjunctiva normal. HEENT: External appearance of nose and ears normal, oral cavity endotracheal tube. NECK: JVD unable to assess; masses not palpable. HEART: First and second heart sounds are normal; some edema. LUNGS: Respiratory rate normal; decreased breath sound. ABDOMEN: Soft, nontender, liver spleen not palpable, no masses palpable Rudd catheter. PSYCH: Awake, answering questions INVESTIGATIONS, reviewed in the clinical context: December 29: WBC 12.7 hemoglobin 12.8 potassium 4.2 creatinine 0.59 WBC 8.7 hemoglobin 13.8 platelets 270 sodium 136 potassium 4.6 BUN 13 creatinine 0.58 Coronavirus [PCR]: Not detected Telemetry strip personally reviewed by me: Sinus rhythm Chest x-ray film personally reviewed by me-ET tube. Some venous congestion. Atelectasis. Assessment and plan: -This patient had a bag of cranial mix and then went to sleep. Presented with swelling of the right swelling of tongue that progressed to acute respiratory failure with patient choking and had to be intubated to protect the airways. It is unclear as to the reason for his ALLERGIC reaction. DC on steroid taper -Acute hypoxic respiratory failure, requiring ventilator support On propofol. Extubated today December 28. -Morbid obesity BMI 65 -Essential hypertension Amlodipine -Diabetes mellitus type 2, on oral hypoglycemic Metformin Disposition: Home Plan - Discharge Summary Discharge Rx Participant: Yes New Discharge Prescriptions: New Levofloxacin [Levaquin] 750 mg PO DAILY #5 tab Famotidine [Pepcid] 20 mg PO BID #30 tablet predniSONE 0 mg PO DIRECTED #10 tab Continue amLODIPine [Norvasc] 10 mg PO DAILY metFORMIN HCL [Glucophage] 850 mg PO W/BRKFST Diclofenac Sodium [Voltaren] 75 mg PO BID Discontinued lisinopriL 20 mg PO DAILY Furosemide [Lasix] 20 mg PO DAILY Discharge Medication List Diclofenac Sodium [Voltaren] 75 mg PO BID 12/26/20 [History] amLODIPine [Norvasc] 10 mg PO DAILY 12/26/20 [History] metFORMIN HCL [Glucophage] 850 mg PO W/BRKFST 12/26/20 [History] Famotidine [Pepcid] 20 mg PO BID #30 tablet 12/29/20 [Rx] Levofloxacin [Levaquin] 750 mg PO DAILY #5 tab 12/29/20 [Rx] predniSONE 0 mg PO DIRECTED #10 tab 12/29/20 [Rx] Follow up Appointment(s)/Referral(s): [facility], [NON-STAFF] - 1-2 Days Sarah Marte MD [Primary Care Provider] - 1-2 days Trice Park MD [STAFF PHYSICIAN] - 10 Days Discharge/Stand Alone Forms: Work/School Release Discharge Disposition: HOME SELF-CARE Plan of Treatment: Will need to be set up for outpatient Sleep Study, will discuss with Dr. Park
== END 2020-12-29 17:10 | disposition home or self-care (01) | DRG 915 ==
LOC: EC 13:37 → 2SICU 16:02
PROVIDERS: ADMIT Hospitalist; ATTEND Hospitalist
PROC: 5A1945Z Respiratory Ventilation, 24-96 Consecutive Hours (ICD-10-PCS; principal; 2020-12-26)
PROC: 0BH17EZ Insertion of Endotracheal Airway into Trachea, Via Natural or Artificial Opening (ICD-10-PCS; 2020-12-26)
DX: T78.3XXA Angioneurotic edema, initial encounter (principal); J96.01 Acute respiratory failure with hypoxia; Z68.44 Body mass index [BMI] 60.0-69.9, adult; T46.4X5A Adverse effect of angiotensin-converting-enzyme inhibitors, initial encounter; Z20.822 Contact with and (suspected) exposure to COVID-19; E11.9 Type 2 diabetes mellitus without complications; E66.01 Morbid (severe) obesity due to excess calories; Z88.0 Allergy status to penicillin; Z79.84 Long term (current) use of oral hypoglycemic drugs; Z79.899 Other long term (current) drug therapy; Z82.49 Family history of ischemic heart disease and other diseases of the circulatory system; G47.33 Obstructive sleep apnea (adult) (pediatric); I10 Essential (primary) hypertension; R13.10 Dysphagia, unspecified; I83.90 Asymptomatic varicose veins of unspecified lower extremity
CPT/HCPCS: 36415; 36600; 71045; 80053; 82805; 85025; 87070; 87205; 87635; 94002; 94003; 96365; 96372; 96375; 99285

== ENCOUNTER → 2021-01-09 | Outpatient (CLI) | payer BC ==
--- NOTE | 2021-01-09 11:24 | US ---
EXAMINATION TYPE: US venous doppler duplex LE DATE OF EXAM: 01/09/2021 10:35 AM COMPARISON: NONE CLINICAL HISTORY: R06.0 Edema. Pt states swelling within left leg/ No known prior DVT, not on blood t hinines SIDE PERFORMED: Bilateral TECHNIQUE: The lower extremity deep venous system is examined utilizing real time linear array sonog sony with graded compression, doppler sonography and color-flow sonography. VESSELS IMAGED: Common Femoral Vein Deep Femoral Vein Greater Saphenous Vein * Femoral Vein Popliteal Vein Small Saphenous Vein * Proximal Calf Veins (* superficial vessels) Low-level internal echoes, lack of compressibility noted within the greater saphenous veins. Deep vei ns show no abnormal luminal echoes, there is normal compressibility and color-flow, normal vascular w aveform Right Leg: Negative for DVT, +SVT near junction of CFV, measurement is approximately 1.5 cm of the c lot to the saphenous vein, femoral vein junction Left Leg: Negative for DVT, +SVT at junction of CFV Results called to Leilani at 's office at time of exam IMPRESSION: Superficial venous lordosis in the greater saphenous veins in close proximity to their ju nction with the common femoral veins. No evident deep venous thrombosis within the lower extremities from the level of the knees centrally
== END | disposition home or self-care (01) ==
LOC: RADUSWWP 10:07
PROVIDERS: ATTEND Internal Medicine Critical Care Medicine
DX: R60.0 Localized edema (principal)
CPT/HCPCS: 93970

== ENCOUNTER 2021-01-10 16:18 | Emergency (ER) | payer BC ==
[2021-01-10 17:47] VITALS: TEMP 97.9
--- NOTE | 2021-01-10 18:34 | ED ---
General Adult HPI - General Chief complaint: Extremity Problem,Nontraumatic Stated complaint: blood clot Time Seen by Provider: 01/10/21 18:15 Source: patient, family, RN notes reviewed Mode of arrival: wheelchair Limitations: no limitations - History of Present Illness Initial comments: This is a 55-year-old obese black male that presents to the emergency room, alert and oriented 4, with complaints of bilateral lower extremity pain and swelling. Patient states that he was intubated on the after angioedema from lisinopril. He was extubated following Saturday and discharged on . He states that is when he noticed the swelling in his legs. Patient was sent by his primary care doctor for an ultrasound to [facility] yesterday. He was told that he has a superficial venous thrombosis bilaterally. He did contact his doctor who told him to go to the hospital. He states he went to [facility] and had a 5 hour wait so he came here. The ultrasound here showing the same superficial venous thrombosis bilaterally. His primary care doctor, Sarah Marte, wanted him treated in the emergency room. He denies any chest pain or difficulty breathing. His oxygen saturation is 97%. -: days(s) (5) Location: left, right, lower extremity Severity scale (1-10): 7 Quality: aching Consistency: constant Improves with: none Associated Symptoms: denies other symptoms Treatments Prior to Arrival: other (Ultrasound) - Related Data Home Medications Medication Instructions Recorded Confirmed Diclofenac Sodium [Voltaren] 75 mg PO BID 12/26/20 01/10/21 amLODIPine [Norvasc] 10 mg PO DAILY 12/26/20 01/10/21 metFORMIN HCL [Glucophage] 850 mg PO W/BRKFST 12/26/20 01/10/21 EPINEPHrine (Auto Inject) [Epipen] 0.3 mg IM ONCE PRN 01/10/21 01/10/21 Furosemide [Lasix] 20 mg PO DAILY 01/10/21 01/10/21 Metoprolol Succinate [Toprol XL] 25 mg PO DAILY 01/10/21 01/10/21 Previous Rx's Medication Instructions Recorded Famotidine [Pepcid] 20 mg PO BID #30 tablet 12/29/20 Apixaban [Eliquis] 0 mg PO DIRECTED #74 tablet 01/10/21 Allergies Allergy/AdvReac Type Severity Reaction Status Date / Time Penicillins Allergy Rash/Hives Verified 01/10/21 18:49 piroxicam [From Feldene] Allergy Swelling Verified 01/10/21 18:49 lisinopril AdvReac Swelling Verified 01/10/21 18:49 Review of Systems ROS Statement: Those systems with pertinent positive or pertinent negative responses have been documented in the HPI. ROS Other: All systems not noted in ROS Statement are negative. Past Medical History Past Medical History: Diabetes Mellitus, Hypertension Additional Past Medical History / Comment(s): obesity History of Any Multi-Drug Resistant Organisms: None Reported Additional Past Surgical History / Comment(s): lap band, varicose veins Past Anesthesia/Blood Transfusion Reactions: No Reported Reaction Past Psychological History: No Psychological Hx Reported Smoking Status: Never smoker Past Alcohol Use History: Occasional Past Drug Use History: None Reported - Past Family History Mother Family Medical History: Congestive Heart Failure (CHF), CVA/TIA, Hypertension Additional Family Medical History / Comment(s): "Heart Problems" General Exam Limitations: no limitations (Uses a cane for ambulation) General appearance: alert, in no apparent distress Head exam: Present: atraumatic, normocephalic, normal inspection Eye exam: Present: normal appearance, EOMI ENT exam: Present: normal exam, normal oropharynx, mucous membranes moist Neck exam: Present: normal inspection, full ROM. Absent: tenderness, meningismus, lymphadenopathy Respiratory exam: Present: normal lung sounds bilaterally (Diminished due to body habitus). Absent: respiratory distress, wheezes, rales, rhonchi, stridor, chest wall tenderness, accessory muscle use Cardiovascular Exam: Present: regular rate, normal rhythm, normal heart sounds. Absent: systolic murmur, diastolic murmur, rubs, gallop, clicks GI/Abdominal exam: Present: soft, normal bowel sounds. Absent: distended, tenderness, guarding, rebound, rigid Right Lower Leg exam: Present: full ROM, tenderness, swelling. Absent: erythema Ankle exam: Present: swelling Neurovascular tendon exam: Absent: abnormal cap refill, extremity cold to touch Left Lower Leg exam: Present: swelling Ankle exam: Present: swelling Neurovascular tendon exam: Absent: abnormal cap refill, extremity cold to touch Back exam: Present: normal inspection. Absent: tenderness, CVA tenderness (R), CVA tenderness (L), rash noted Neurological exam: Present: alert, oriented X3 Psychiatric exam: Present: normal affect, normal mood Skin exam: Present: warm, dry, intact, normal color, other (Dried plaques behind right knee. Hyperpigmentation to bilateral lower extremities.). Absent: rash Course Vital Signs 01/10/21 01/10/21 17:41 19:12 Temperature 97.9 F Pulse Rate 81 79 Respiratory 18 20 Rate Blood Pressure 158/87 160/84 O2 Sat by Pulse 97 97 Oximetry Medical Decision Making - Medical Decision Making Patient has no difficulty breathing or chest pain. His oxygen saturation is 97%. Case was discussed with Dr. Bedolla. He did speak with Dr. Guillory at 1835 who suggested patient be put on eliquis. He was directed to follow up with his primary care doctor on an outpatient basis. Patient is agreeable to this plan of care.. Disposition Clinical Impression: Superficial vein thrombosis Disposition: HOME SELF-CARE Condition: Good Additional Instructions: Take medication as prescribed and follow up with your primary care doctor this week. Return to the emergency room with any new or worsening symptoms including difficulty breathing or chest pain. Prescriptions: Apixaban [Eliquis] 0 mg PO DIRECTED #74 tablet Is patient prescribed a controlled substance at d/c from ED?: No Referrals: Sarah Matre MD [Primary Care Provider] - 1-2 days Time of Disposition: 18:55
[2021-01-10] MEDS ORDERED: APIXABAN 5 MG TAB PO STA (18:49)
[2021-01-10 19:13] VITALS: BP 160/84; PULSE 79; RESP 20
== END 2021-01-10 19:13 | disposition home or self-care (01) ==
LOC: EC 16:18
DX: I82.813 Embolism and thrombosis of superficial veins of lower extremities, bilateral (principal); E11.9 Type 2 diabetes mellitus without complications; I10 Essential (primary) hypertension; Z79.84 Long term (current) use of oral hypoglycemic drugs; Z79.899 Other long term (current) drug therapy; Z88.0 Allergy status to penicillin; Z88.1 Allergy status to other antibiotic agents; Z88.8 Allergy status to other drugs, medicaments and biological substances
CPT/HCPCS: 99283